=== PATIENT | female | born 1970 | race Two or more races ===

== ENCOUNTER 2019-11-03 13:20 | Inpatient (IN) | payer MEDICAID ==
[~2019-11-03] VITALS: Ht 167.6 cm; Wt 60.6 kg
[2019-11-03] MEDS ORDERED: DIPHENHYDRAMINE 50MG/ML VIAL IM STA (14:18)
[2019-11-03] MEDS ORDERED: LORAZEPAM 2MG/ML CPJ IM STA (14:18)
[2019-11-03] MEDS ORDERED: SODIUM CHLORIDE 0.9% 1,000 ML IV ONE ×2 (14:18→16:37)
[2019-11-03] MEDS ORDERED: HALOPERIDOL LACTATE 5MG/ML VIAL IM STA (14:18)
[2019-11-03 14:57] LABS: CHLORIDE 99 mEq/L (98-107); HEMATOCRIT. 32.8 % (36.0-48.0); MEAN CORPUSCULAR HEMOGLOBIN 36.6 pg (28.0-32.0); MEAN CORPUSCULAR VOLUME 109.2 fL (81.0-99.0); MEAN PLATELET VOLUME 8.6 fl (7.4-10.4); PLATELET 190 x1000/uL (130-400); RED BLOOD CELL COUNT 3.01 mill/uL (4.2-5.4); RED CELL DISTRIBUTION WIDTH 16.7 % (11.6-14.6)
[2019-11-03 15:01] LABS: HCG SCREEN NEGATIVE
[2019-11-03 15:03] LABS: ETHANOL BLOOD < 10 mg/dL
[2019-11-03 15:18] LABS: CREATINE KINASE 2680 IU/L (26-192)
[2019-11-03 15:53] LABS: PLATELET ESTIMATE NORMAL
[2019-11-03] MEDS ORDERED: SODIUM CHLORIDE 0.9% 1000ML BAG (SEPSIS BOLUS) IV ONE (16:15)
[2019-11-03] MEDS ORDERED: LEVOFLOXACIN 750MG PREMIX 150 ML IV ONE (16:15)
[2019-11-03] MEDS ORDERED: LORAZEPAM 2MG/ML CPJ IV ONE (16:15)
[2019-11-03 18:44] LABS: CLARITY URINE CLOUDY (CLEAR); COLOR URINE DARK YELLOW (YELLOW); KETONES URINE 1+ (NEGATIVE); LEUKOCYTE ESTERASE URINE NEGATIVE (NEGATIVE); NITRITE URINE NEGATIVE (NEGATIVE); OCCULT BLOOD URINE 3+ (NEGATIVE); PROTEIN URINE 2+ (NEGATIVE); SPECIFIC GRAVITY URINE 1.027 (1.005-1.030)
[2019-11-03] MEDS ORDERED: KCL 20MEQ/100ML PREMIX 100 ML IV ONE (19:00)
[2019-11-03 19:03] LABS: *AMPHETAMINES SCREEN URINE NEGATIVE (NEGATIVE); *BARBITURATES SCREEN URINE NEGATIVE (NEGATIVE)
[2019-11-03 19:05] LABS: METHADONE URINE SCREEN NEGATIVE (NEGATIVE); PHENCYCLIDINE URINE SCREEN NEGATIVE (NEGATIVE)
[2019-11-03] MEDS ORDERED: CLONIDINE 0.1MG TABLET PO PRN (19:15)
[2019-11-03] MEDS ORDERED: ONDANSETRON HCL 4MG/2ML INJ IV PRN (19:15)
[2019-11-03] MEDS ORDERED: HYDROCODONE/ACETAMINOPHEN 10/325MG TABLET PO PRN (19:15)
[2019-11-03] MEDS ORDERED: HYDRALAZINE 20MG/ML VIAL IV PRN (19:15)
[2019-11-03] MEDS ORDERED: DOCUSATE SODIUM 100MG CAPSULE PO PRN (19:15)
[2019-11-03] MEDS ORDERED: GUAIFENESIN 200MG/10ML SUGAR FREE UDC PO PRN (19:15)
[2019-11-03] MEDS ORDERED: IPRATROPIUM/ALBUTEROL 0.5-3(2.5)MG/3ML NEB HHN PRN (19:15)
[2019-11-03 19:21] LABS: *BENZODIAZEPINES SCREEN URINE PRESUMTIVE POSITIVE (NEGATIVE); *COCAINE SCREEN URINE PRESUMTIVE POSITIVE (NEGATIVE); CANNABINOID URINE SCREEN PRESUMTIVE POSITIVE (NEGATIVE); OPIATES URINE SCREEN PRESUMTIVE POSITIVE (NEGATIVE)
[2019-11-03 21:12] VITALS: BP 116/77
[2019-11-03] MEDS: SODIUM CHLORIDE 0.45% 1,000 ML IV SCH (22:07)
[2019-11-03] MEDS: SODIUM CHLORIDE 0.9% INJ 3ML FLUSH IVF SCH (22:08)
[2019-11-03 23:57] LABS: CREATINE KINASE MB FRACTION 11.8 ng/mL (0.5-3.6)
[2019-11-04] VITALS: BP 106/82
[2019-11-04 04:00] VITALS: BP 105/69
[2019-11-04] MEDS: SODIUM CHLORIDE 0.9% INJ 3ML FLUSH IVF SCH ×3 (05:33→23:25)
[2019-11-04 06:57] LABS: CHLORIDE 104 mEq/L (98-107)
[2019-11-04 07:11] LABS: CREATINE KINASE MB FRACTION 8.5 ng/mL (0.5-3.6)
[2019-11-04 07:14] LABS: BASOPHILS % 0.1 % (0.0-2.0); EOSINOPHILS % 0.1 % (0.0-5.0); HEMATOCRIT. 32.7 % (36.0-48.0); LYMPHOCYTES % 14.6 % (20.0-50.0); MEAN CORPUSCULAR HEMOGLOBIN 36.8 pg (28.0-32.0); MEAN PLATELET VOLUME 8.1 fl (7.4-10.4); MONOCYTES % 9.1 % (2.0-8.0); NEUTROPHILS % 76.1 % (40.0-76.0); PLATELET 179 x1000/uL (130-400); RED CELL DISTRIBUTION WIDTH 16.7 % (11.6-14.6)
[2019-11-04 07:20] LABS: CREATINE KINASE 2171 IU/L (26-192)
[2019-11-04 08:00] VITALS: BP 121/84
[2019-11-04] MEDS ORDERED: ENOXAPARIN 30MG/0.3ML SYR SUBCUT SCH (09:00)
[2019-11-04] MEDS: FOLIC ACID 1MG TABLET PO SCH (09:00)
[2019-11-04] MEDS ORDERED: ENOXAPARIN 40MG/0.4ML SYR SUBCUT SCH (09:00)
[2019-11-04] MEDS: THIAMINE HCL 100MG TABLET PO SCH (09:00)
[2019-11-04] MEDS: MULTIVITAMINS,THER W-MINERALS TABLET PO SCH (09:00)
[2019-11-04] MEDS ORDERED: POTASSIUM CHLORIDE 20MEQ TABLET SR PO SCH (09:15)
[2019-11-04] MEDS: SODIUM CHLORIDE 0.45% 1,000 ML IV SCH (09:19)
[2019-11-04 12:00] VITALS: BP 112/79
[2019-11-04] MEDS ORDERED: KCL 20MEQ/100ML PREMIX 100 ML IV SCH (12:00)
[2019-11-04] MEDS: DEXT 5%/0.45% NACL KCL 20MEQ/L 1,000 ML IV SCH (14:39)
[2019-11-04 16:00] VITALS: BP 122/90
[2019-11-04] MEDS: LORAZEPAM 2MG/ML CPJ IV PRN (18:52)
[2019-11-04 20:00] VITALS: BP 115/82
[2019-11-04] MEDS: ACETAMINOPHEN 325MG TABLET PO PRN (23:25)
[2019-11-05] VITALS: BP 113/74
[2019-11-05 04:00] VITALS: BP 113/74
[2019-11-05] MEDS: DEXT 5%/0.45% NACL KCL 20MEQ/L 1,000 ML IV SCH ×3 (06:48→17:07)
[2019-11-05] MEDS: SODIUM CHLORIDE 0.9% INJ 3ML FLUSH IVF SCH ×2 (06:49→13:26)
[2019-11-05 08:00] VITALS: BP 135/84
[2019-11-05] MEDS: ENOXAPARIN 40MG/0.4ML SYR SUBCUT SCH (09:41)
[2019-11-05] MEDS: MULTIVITAMINS,THER W-MINERALS TABLET PO SCH (09:41)
[2019-11-05] MEDS: FOLIC ACID 1MG TABLET PO SCH (09:41)
[2019-11-05] MEDS: THIAMINE HCL 100MG TABLET PO SCH (09:41)
[2019-11-05 10:35] LABS: MEAN CORPUSCULAR HEMOGLOBIN 36.9 pg (28.0-32.0); MEAN CORPUSCULAR VOLUME 107.4 fL (81.0-99.0); MEAN PLATELET VOLUME 7.7 fl (7.4-10.4); PLATELET 170 x1000/uL (130-400); RED BLOOD CELL COUNT 2.98 mill/uL (4.2-5.4)
[2019-11-05 10:44] LABS: CHLORIDE 103 mEq/L (98-107)
[2019-11-05 10:55] LABS: CREATINE KINASE 529 IU/L (26-192)
[2019-11-05 10:56] LABS: CREATINE KINASE MB FRACTION 1.3 ng/mL (0.5-3.6)
[2019-11-05 12:00] VITALS: BP 115/74
[2019-11-05 12:40] LABS: NUCLEATED RED BLOOD CELLS 1 /100 WBC
[2019-11-05 12:41] LABS: PLATELET ESTIMATE NORMAL
[2019-11-05] MEDS: LORAZEPAM 2MG/ML CPJ IV PRN ×3 (13:27→21:10)
[2019-11-05] MEDS ORDERED: POTASSIUM CHLORIDE 20MEQ TABLET SR PO SCH ×2 (13:30→16:00)
[2019-11-05 16:00] VITALS: BP 126/78
[2019-11-05] MEDS: ACETAMINOPHEN 325MG TABLET PO PRN (17:55)
[2019-11-05 20:00] VITALS: BP 94/60
[2019-11-05] MEDS: LEVOFLOXACIN 500MG PREMIX 100 ML IV SCH (21:10)
[2019-11-06] VITALS: BP 118/68
[2019-11-06 04:00] VITALS: BP 137/87
[2019-11-06] MEDS: DEXT 5%/0.45% NACL KCL 20MEQ/L 1,000 ML IV SCH ×2 (04:00→14:00)
[2019-11-06 08:00] VITALS: BP 140/87
[2019-11-06] MEDS: THIAMINE HCL 100MG TABLET PO SCH (10:02)
[2019-11-06] MEDS: FOLIC ACID 1MG TABLET PO SCH (10:02)
[2019-11-06] MEDS: ENOXAPARIN 40MG/0.4ML SYR SUBCUT SCH (10:03)
[2019-11-06] MEDS: MULTIVITAMINS,THER W-MINERALS TABLET PO SCH (10:03)
[2019-11-06] MEDS: LORAZEPAM 2MG/ML CPJ IV PRN ×2 (10:35→18:52)
[2019-11-06 12:00] VITALS: BP 128/89
[2019-11-06 16:00] VITALS: BP 125/92
[2019-11-06 16:37] LABS: CHLORIDE 103 mEq/L (98-107)
[2019-11-06 20:00] VITALS: BP 137/99
[2019-11-06] MEDS: LEVOFLOXACIN 500MG PREMIX 100 ML IV SCH (20:50)
[2019-11-06] MEDS: MORPHINE SULFATE 2 MG/ML CPJ (NOT FOR IM USE) IV PRN (21:40)
[2019-11-07] VITALS: BP 115/80
[2019-11-07] MEDS: DEXT 5%/0.45% NACL KCL 20MEQ/L 1,000 ML IV SCH ×3 (00:34→20:11)
[2019-11-07] MEDS: LORAZEPAM 2MG/ML CPJ IV PRN ×4 (01:57→17:13)
[2019-11-07 04:00] VITALS: BP 120/77
[2019-11-07 07:28] LABS: CHLORIDE 105 mEq/L (98-107)
[2019-11-07] MEDS: FOLIC ACID 1MG TABLET PO SCH (08:53)
[2019-11-07] MEDS: MULTIVITAMINS,THER W-MINERALS TABLET PO SCH (08:53)
[2019-11-07] MEDS: THIAMINE HCL 100MG TABLET PO SCH (08:53)
[2019-11-07] MEDS: DIPHENHYDRAMINE 50MG/ML VIAL IV PRN ×3 (08:55→20:12)
[2019-11-07] MEDS: MORPHINE SULFATE 2 MG/ML CPJ (NOT FOR IM USE) IV PRN ×2 (08:56→13:49)
[2019-11-07] MEDS: ENOXAPARIN 40MG/0.4ML SYR SUBCUT SCH (09:00)
[2019-11-07 12:00] VITALS: BP 137/96
[2019-11-07 16:00] VITALS: BP 124/89
[2019-11-07 20:00] VITALS: BP 127/87
[2019-11-07] MEDS: LEVOFLOXACIN 500MG PREMIX 100 ML IV SCH (20:11)
[2019-11-08] MEDS: LORAZEPAM 2MG/ML CPJ IV PRN ×2 (00:17→16:11)
[2019-11-08] MEDS: MORPHINE SULFATE 2 MG/ML CPJ (NOT FOR IM USE) IV PRN (00:43)
[2019-11-08] MEDS: DEXT 5%/0.45% NACL KCL 20MEQ/L 1,000 ML IV SCH ×2 (07:05→16:11)
[2019-11-08 08:00] VITALS: BP 110/72
[2019-11-08] MEDS: FOLIC ACID 1MG TABLET PO SCH (09:38)
[2019-11-08] MEDS: THIAMINE HCL 100MG TABLET PO SCH (09:38)
[2019-11-08] MEDS: MULTIVITAMINS,THER W-MINERALS TABLET PO SCH (09:39)
[2019-11-08] MEDS: ENOXAPARIN 40MG/0.4ML SYR SUBCUT SCH (09:39)
[2019-11-08 12:00] VITALS: BP 116/76
[2019-11-08 20:00] VITALS: BP 111/76
[2019-11-08] MEDS: LEVOFLOXACIN 500MG PREMIX 100 ML IV SCH (20:38)
[2019-11-08] MEDS: MAGNESIUM/ALUMINUM HYDROXIDE/SIMETHICONE 30ML UDC PO PRN (20:38)
[2019-11-08] MEDS: ACETAMINOPHEN 325MG TABLET PO PRN (21:07)
[2019-11-09] VITALS: BP 121/80
[2019-11-09] MEDS: DEXT 5%/0.45% NACL KCL 20MEQ/L 1,000 ML IV SCH ×2 (02:05→11:33)
[2019-11-09] MEDS: ACETAMINOPHEN 325MG TABLET PO PRN (03:36)
[2019-11-09 04:00] VITALS: BP 110/67
[2019-11-09] MEDS ORDERED: HYDROCODONE/ACETAMINOPHEN 10/325MG TABLET PO PRN (08:45)
[2019-11-09] MEDS ORDERED: MORPHINE SULFATE 2 MG/ML CPJ (NOT FOR IM USE) IV PRN (08:45)
[2019-11-09] MEDS ORDERED: LORAZEPAM 2MG/ML CPJ IV PRN (08:45)
[2019-11-09] MEDS: FOLIC ACID 1MG TABLET PO SCH (09:00)
[2019-11-09] MEDS: MULTIVITAMINS,THER W-MINERALS TABLET PO SCH (09:00)
[2019-11-09] MEDS: THIAMINE HCL 100MG TABLET PO SCH (09:00)
[2019-11-09] MEDS: ENOXAPARIN 40MG/0.4ML SYR SUBCUT SCH (09:00)
[2019-11-09] MEDS: MAGNESIUM/ALUMINUM HYDROXIDE/SIMETHICONE 30ML UDC PO PRN (12:56)
[2019-11-09 15:19] VITALS: BP 110/67
== END 2019-11-09 18:15 | DRG 720 ==
LOC: ER 13:30 → 5WST 17:15 → EDBD 17:15 → ENRESERV 19:47
PROVIDERS: ADMIT Internal Medicine; ATTEND Internal Medicine
DX: A41.9 Sepsis, unspecified organism (principal); N17.0 Acute kidney failure with tubular necrosis; E43 Unspecified severe protein-calorie malnutrition; T40.5X1A Poisoning by cocaine, accidental (unintentional), initial encounter; M62.82 Rhabdomyolysis; Z78.1 Physical restraint status; D64.9 Anemia, unspecified; E87.6 Hypokalemia; N39.0 Urinary tract infection, site not specified; R74.0 Nonspecific elevation of levels of transaminase and lactic acid dehydrogenase [LDH]; F11.10 Opioid abuse, uncomplicated; F12.10 Cannabis abuse, uncomplicated; E16.2 Hypoglycemia, unspecified; Z68.21 Body mass index [BMI] 21.0-21.9, adult; Z91.410 Personal history of adult physical and sexual abuse; Y92.89 Other specified places as the place of occurrence of the external cause
CPT/HCPCS: 36415; 71045; 80048; 80053; 80305; 80307; 80320; 80329; 81003; 82140; 82550; 82553; 82962; 83605; 84443; 84484; 84703; 85025; 93005; 96372; 99285; J1200; J1630; J1650; J1956; J2060; J2270; J3480; J7030; G0480

== ENCOUNTER 2020-03-18 15:53 | Emergency (ER) | payer MEDICAID ==
[~2020-03-18] VITALS: Ht 172.7 cm; Wt 51.0 kg
[2020-03-18] MEDS ORDERED: MORPHINE SULFATE 4 MG/ML CPJ (NOT FOR IM USE) IV STA (16:11)
[2020-03-18] MEDS ORDERED: FAMOTIDINE 20MG/2ML VIAL IV STA (16:11)
[2020-03-18] MEDS ORDERED: SODIUM CHLORIDE 0.9% 1,000 ML IV ONE (16:11)
[2020-03-18] MEDS ORDERED: ONDANSETRON HCL 4MG/2ML INJ IV STA (16:11)
[2020-03-18 16:51] LABS: BASOPHILS % 0.6 % (0.0-2.0); EOSINOPHILS % 0.1 % (0.0-5.0); HEMATOCRIT. 34.8 % (36.0-48.0); HEMOGLOBIN. 11.9 g/dL (12.0-16.0); LYMPHOCYTES % 11.7 % (20.0-50.0); MEAN CORPUSCULAR HEMOGLOBIN 35.9 pg (28.0-32.0); MEAN CORPUSCULAR VOLUME 105.1 fL (81.0-99.0); MEAN PLATELET VOLUME 6.8 fl (7.4-10.4); MONOCYTES % 8.9 % (2.0-8.0); NEUTROPHILS % 78.7 % (40.0-76.0); PLATELET 381 x1000/uL (130-400); RED BLOOD CELL COUNT 3.31 mill/uL (4.2-5.4); RED CELL DISTRIBUTION WIDTH 14.4 % (11.6-14.6)
[2020-03-18 16:53] LABS: CHLORIDE 105 mEq/L (98-107)
[2020-03-18 16:57] LABS: INR 1.2
[2020-03-18 17:19] LABS: CLARITY URINE CLOUDY (CLEAR); COLOR URINE DK YELLOW (YELLOW); KETONES URINE TRACE (NEGATIVE); LEUKOCYTE ESTERASE URINE TRACE (NEGATIVE); NITRITE URINE NEGATIVE (NEGATIVE); OCCULT BLOOD URINE NEGATIVE (NEGATIVE); PH URINE 7.5 (4.5-8.0); PROTEIN URINE 1+ (NEGATIVE); SPECIFIC GRAVITY URINE 1.024 (1.005-1.030)
[2020-03-18 18:32] VITALS: BP 145/89
== END 2020-03-18 18:32 | disposition home or self-care (01) ==
LOC: ER 15:53
DX: R10.9 Unspecified abdominal pain (principal); R11.2 Nausea with vomiting, unspecified
CPT/HCPCS: 36415; 80053; 81003; 83690; 85025; 85610; 96361; 96374; 96375; 99284; J2270; J2405; J3490; J7030

== ENCOUNTER 2021-05-12 10:56 | Inpatient (IN) | payer MEDICAID, OTHER ==
[~2021-05-12] VITALS: Ht 170.2 cm; Wt 66.2 kg
[2021-05-12] MEDS ORDERED: MORPHINE SULFATE 4 MG/ML CPJ (NOT FOR IM USE) IV ONE ×2 (11:45→15:00)
[2021-05-12] MEDS ORDERED: SODIUM CHLORIDE 0.9% 1,000 ML IV ONE (11:45)
[2021-05-12 12:06] LABS: HEMOGLOBIN. 10.5 g/dL (12.0-16.0); MEAN CORPUSCULAR HEMOGLOBIN 30.3 pg (28.0-32.0); MEAN CORPUSCULAR VOLUME 89.8 fL (81.0-99.0); MEAN PLATELET VOLUME 8.5 fl (7.4-10.4); PLATELET 406 x1000/uL (130-400); RED BLOOD CELL COUNT 3.45 mill/uL (4.2-5.4); RED CELL DISTRIBUTION WIDTH 19.9 % (11.6-14.6)
[2021-05-12 12:14] LABS: CHLORIDE 99 mEq/L (98-107)
[2021-05-12 12:35] LABS: PLATELET ESTIMATE NORMAL
[2021-05-12] MEDS ORDERED: VANCOMYCIN 1 G PREMIX 200 ML IV SCH (15:15)
[2021-05-12] MEDS ORDERED: LORAZEPAM 2MG/ML CPJ IV ONE (18:30)
[2021-05-12] MEDS ORDERED: ACETAMINOPHEN 325MG TABLET PO ONE (21:45)
[2021-05-12] MEDS ORDERED: ACETAMINOPHEN 325MG TABLET PO PRN ×3 (21:45→23:15)
[2021-05-12] MEDS ORDERED: SODIUM CHLORIDE 0.9% 500 ML IV ONE (21:45)
[2021-05-12 22:00] VITALS: BP 146/83
[2021-05-12] MEDS ORDERED: SODIUM CHLORIDE 0.9% 500 ML IV NR (22:00)
[2021-05-12] MEDS ORDERED: PIPERACILLIN/TAZ 3.375G PREMIX 50 ML IV NR (23:30)
[2021-05-13] VITALS: BP 144/88
[2021-05-13] MEDS ORDERED: NALOXONE HCL 0.4MG/ML VIAL IV PRN (00:45)
[2021-05-13] MEDS: MORPHINE SULFATE 2 MG/ML CPJ (NOT FOR IM USE) IV PRN ×4 (00:45→22:35)
[2021-05-13] MEDS: VANCOMYCIN 750 MG PREMIX 150 ML IV SCH ×2 (00:45→09:06)
[2021-05-13 04:00] VITALS: BP 131/87
[2021-05-13] MEDS ORDERED: PIPERACILLIN/TAZOBACTAM 3.375GM/50ML PREMIX IV SCH (06:00)
[2021-05-13] MEDS: PIPERACILLIN/TAZOBACTAM 3.375G in DEXT 5% WATER 50ML IV SCH ×3 (06:43→21:01)
[2021-05-13 06:45] LABS: HEMATOCRIT. 27.7 % (36.0-48.0); HEMOGLOBIN. 9.3 g/dL (12.0-16.0); MEAN CORPUSCULAR VOLUME 89.4 fL (81.0-99.0); MEAN PLATELET VOLUME 8.1 fl (7.4-10.4); PLATELET 468 x1000/uL (130-400); RED CELL DISTRIBUTION WIDTH 19.4 % (11.6-14.6)
[2021-05-13 06:49] LABS: CHLORIDE 105 mEq/L (98-107)
[2021-05-13 08:00] VITALS: BP 130/83
[2021-05-13] MEDS ORDERED: PNEUMOCOCCAL 23-VAL P-SAC VAC 0.5 ML IM ONE (08:00)
[2021-05-13] MEDS: FAMOTIDINE 20MG TABLET PO SCH ×2 (09:06→17:36)
[2021-05-13] MEDS: ENOXAPARIN 40MG/0.4ML SYR SUBCUT SCH (09:07)
[2021-05-13 12:00] VITALS: BP 119/80
[2021-05-13] MEDS ORDERED: METOPROLOL TARTRATE 25MG TABLET PO SCH (13:30)
[2021-05-13] MEDS: GABAPENTIN 300MG CAPSULE PO SCH ×2 (14:36→21:00)
[2021-05-13] MEDS: CHLORDIAZEPOXIDE 25MG CAPSULE PO SCH ×2 (14:36→21:00)
[2021-05-13] MEDS: METOPROLOL TARTRATE 25MG TABLET PO SCH ×2 (14:37→21:00)
[2021-05-13] MEDS ORDERED: FOLIC ACID 1 MG, THIAMINE HCL 100 MG, MVI, ADULT NO.1 10 ML in DEXTROSE 5% WATER 1,000 ML IV SCH (15:00)
[2021-05-13 15:35] LABS: PLATELET ESTIMATE INCREASED
[2021-05-13 16:00] VITALS: BP 143/88
[2021-05-13 19:52] LABS: *AMPHETAMINES SCREEN URINE NEGATIVE (NEGATIVE); *BARBITURATES SCREEN URINE NEGATIVE (NEGATIVE); *BENZODIAZEPINES SCREEN URINE NEGATIVE (NEGATIVE); *COCAINE SCREEN URINE NEGATIVE (NEGATIVE); METHADONE URINE SCREEN NEGATIVE (NEGATIVE); OPIATES URINE SCREEN PRESUMTIVE POSITIVE (NEGATIVE)
[2021-05-13 19:53] LABS: CANNABINOID URINE SCREEN PRESUMTIVE POSITIVE (NEGATIVE); PHENCYCLIDINE URINE SCREEN NEGATIVE (NEGATIVE)
[2021-05-13 20:00] VITALS: BP 130/89
[2021-05-13] MEDS: VANCOMYCIN 1 G PREMIX 200 ML IV SCH (20:35)
[2021-05-14] VITALS: BP 140/92
[2021-05-14] MEDS: PANTOPRAZOLE 40MG DR TABLET PO SCH ×3 (01:51→22:38)
[2021-05-14] MEDS: HYDROXYCHLOROQUINE SULFATE 200MG TABLET PO SCH ×2 (01:51→12:50)
[2021-05-14] MEDS: METHYLPREDNISOLONE SOD SUCC 40 MG/ML VIAL IV SCH ×3 (01:51→22:35)
[2021-05-14] MEDS: CELECOXIB 200MG CAPSULE PO SCH ×3 (01:52→17:40)
[2021-05-14 04:00] VITALS: BP 91/51
[2021-05-14] MEDS: CHLORDIAZEPOXIDE 25MG CAPSULE PO SCH ×3 (06:00→22:37)
[2021-05-14] MEDS: GABAPENTIN 300MG CAPSULE PO SCH ×3 (06:00→22:38)
[2021-05-14] MEDS: PIPERACILLIN/TAZOBACTAM 3.375G in DEXT 5% WATER 50ML IV SCH ×3 (06:00→22:37)
[2021-05-14] MEDS: MORPHINE SULFATE 2 MG/ML CPJ (NOT FOR IM USE) IV PRN ×2 (06:39→12:54)
[2021-05-14 07:45] LABS: CHLORIDE 98 mEq/L (98-107)
[2021-05-14 07:53] LABS: CREATINE KINASE 24 IU/L (26-192)
[2021-05-14 08:00] VITALS: BP 125/85
[2021-05-14 12:00] VITALS: BP 132/86
[2021-05-14] MEDS: ENOXAPARIN 40MG/0.4ML SYR SUBCUT SCH (12:50)
[2021-05-14] MEDS: VANCOMYCIN 1 G PREMIX 200 ML IV SCH ×2 (12:51→22:35)
[2021-05-14] MEDS: METOPROLOL TARTRATE 25MG TABLET PO SCH ×2 (12:52→22:36)
[2021-05-14] MEDS: LEFLUNOMIDE 20MG TABLET PO SCH (13:23)
[2021-05-14 16:00] VITALS: BP 142/88
[2021-05-14 16:26] LABS: BASOPHILS % 0.6 % (0.0-2.0); HEMATOCRIT. 31.9 % (36.0-48.0); HEMOGLOBIN. 10.5 g/dL (12.0-16.0); LYMPHOCYTES % 12.8 % (20.0-50.0); MEAN CORPUSCULAR HEMOGLOBIN 30.7 pg (28.0-32.0); MEAN CORPUSCULAR VOLUME 93.3 fL (81.0-99.0); MEAN PLATELET VOLUME 9.2 fl (7.4-10.4); MONOCYTES % 9.1 % (2.0-8.0); NEUTROPHILS % 77.5 % (40.0-76.0); PLATELET 601 x1000/uL (130-400); RED BLOOD CELL COUNT 3.42 mill/uL (4.2-5.4); RED CELL DISTRIBUTION WIDTH 18.3 % (11.6-14.6)
[2021-05-14] MEDS: HYDROCODONE/ACETAMINOPHEN 10/325MG TABLET PO PRN (17:55)
[2021-05-14 20:00] VITALS: BP 114/84
[2021-05-14] MEDS: LORAZEPAM 2MG/ML CPJ IV PRN (22:39)
[2021-05-15] VITALS: BP 111/76
[2021-05-15 05:36] LABS: BASOPHILS % 0.1 % (0.0-2.0); EOSINOPHILS % 0.1 % (0.0-5.0); HEMATOCRIT. 29.1 % (36.0-48.0); LYMPHOCYTES % 10.2 % (20.0-50.0); MEAN CORPUSCULAR HEMOGLOBIN 31.9 pg (28.0-32.0); MEAN CORPUSCULAR VOLUME 92.7 fL (81.0-99.0); MEAN PLATELET VOLUME 7.9 fl (7.4-10.4); MONOCYTES % 3.2 % (2.0-8.0); NEUTROPHILS % 86.4 % (40.0-76.0); PLATELET 742 x1000/uL (130-400); RED BLOOD CELL COUNT 3.14 mill/uL (4.2-5.4); RED CELL DISTRIBUTION WIDTH 18.3 % (11.6-14.6)
[2021-05-15 05:58] LABS: CLARITY URINE CLEAR (CLEAR); COLOR URINE YELLOW (YELLOW); KETONES URINE NEGATIVE (NEGATIVE); LEUKOCYTE ESTERASE URINE NEGATIVE (NEGATIVE); NITRITE URINE NEGATIVE (NEGATIVE); OCCULT BLOOD URINE NEGATIVE (NEGATIVE); PROTEIN URINE TRACE (NEGATIVE); SPECIFIC GRAVITY URINE 1.033 (1.005-1.030); UROBILINOGEN URINE 0.2 E.U./dL (0.2-1.0)
[2021-05-15 06:13] LABS: CHLORIDE 101 mEq/L (98-107)
[2021-05-15] MEDS: CHLORDIAZEPOXIDE 25MG CAPSULE PO SCH ×3 (06:13→21:16)
[2021-05-15] MEDS: GABAPENTIN 300MG CAPSULE PO SCH ×3 (06:13→21:16)
[2021-05-15] MEDS: PANTOPRAZOLE 40MG DR TABLET PO SCH ×2 (06:13→21:16)
[2021-05-15] MEDS: PIPERACILLIN/TAZOBACTAM 3.375G in DEXT 5% WATER 50ML IV SCH ×3 (06:15→21:16)
[2021-05-15] MEDS: HYDROCODONE/ACETAMINOPHEN 10/325MG TABLET PO PRN (06:51)
[2021-05-15 08:00] VITALS: BP 125/62
[2021-05-15] MEDS: VANCOMYCIN 1 G PREMIX 200 ML IV SCH ×2 (09:00→22:17)
[2021-05-15 09:07] LABS: G6PD RBC 3.53 x10E6/uL (3.77-5.28)
[2021-05-15] MEDS: METHYLPREDNISOLONE SOD SUCC 40 MG/ML VIAL IV SCH ×2 (10:14→21:15)
[2021-05-15] MEDS: CELECOXIB 200MG CAPSULE PO SCH (10:14)
[2021-05-15] MEDS: LEFLUNOMIDE 20MG TABLET PO SCH (10:14)
[2021-05-15] MEDS: ENOXAPARIN 40MG/0.4ML SYR SUBCUT SCH (10:16)
[2021-05-15] MEDS: HYDROXYCHLOROQUINE SULFATE 200MG TABLET PO SCH (10:17)
[2021-05-15] MEDS: METOPROLOL TARTRATE 25MG TABLET PO SCH ×2 (10:26→21:16)
[2021-05-15] MEDS ORDERED: DEXTROSE 50% WATER 50ML SYRINGE IV PRN (11:30)
[2021-05-15 12:00] VITALS: BP 135/72
[2021-05-15] MEDS ORDERED: OXYCODONE HCL/ACETAMINOPHEN 5/325MG TABLET PO PRN (12:00)
[2021-05-15] MEDS: BLOOD SUGAR DIAGNOSTIC STRIP TEST SCH ×3 (12:10→21:16)
[2021-05-15] MEDS: INSULIN LISPRO 100 UNITS/ML SUBCUT SCH ×2 (13:46→21:55)
[2021-05-15 16:00] VITALS: BP 140/80
[2021-05-15] MEDS: OXYCODONE HCL/ACETAMINOPHEN 5/325MG TABLET PO PRN ×2 (16:29→21:17)
[2021-05-15 20:00] VITALS: BP 135/99
[2021-05-15] MEDS: LORAZEPAM 2MG/ML CPJ IV PRN (21:17)
[2021-05-16] VITALS: BP 129/86
[2021-05-16 04:00] VITALS: BP_SYST 127; BP_DIAS 93; BP_DIAS 98
[2021-05-16] MEDS: PIPERACILLIN/TAZOBACTAM 3.375G in DEXT 5% WATER 50ML IV SCH ×2 (05:37→14:00)
[2021-05-16] MEDS: GABAPENTIN 300MG CAPSULE PO SCH ×3 (05:37→21:40)
[2021-05-16] MEDS: PANTOPRAZOLE 40MG DR TABLET PO SCH ×2 (05:37→21:39)
[2021-05-16] MEDS: CELECOXIB 200MG CAPSULE PO SCH ×2 (05:37→17:20)
[2021-05-16] MEDS: CHLORDIAZEPOXIDE 25MG CAPSULE PO SCH ×3 (05:37→21:39)
[2021-05-16] MEDS: LORAZEPAM 2MG/ML CPJ IV PRN ×2 (05:48→12:29)
[2021-05-16] MEDS: BLOOD SUGAR DIAGNOSTIC STRIP TEST SCH ×4 (06:01→21:00)
[2021-05-16] MEDS: INSULIN LISPRO 100 UNITS/ML SUBCUT SCH ×4 (06:04→21:00)
[2021-05-16 08:00] VITALS: BP 113/79
[2021-05-16] MEDS: HYDROXYCHLOROQUINE SULFATE 200MG TABLET PO SCH (09:08)
[2021-05-16] MEDS: ENOXAPARIN 40MG/0.4ML SYR SUBCUT SCH (09:08)
[2021-05-16] MEDS: METOPROLOL TARTRATE 25MG TABLET PO SCH ×2 (09:09→21:00)
[2021-05-16] MEDS: OXYCODONE HCL/ACETAMINOPHEN 5/325MG TABLET PO PRN (09:09)
[2021-05-16] MEDS: METHYLPREDNISOLONE SOD SUCC 40 MG/ML VIAL IV SCH ×2 (09:10→21:40)
[2021-05-16] MEDS: VANCOMYCIN 1 G PREMIX 200 ML IV SCH (10:29)
[2021-05-16] MEDS: LEFLUNOMIDE 20MG TABLET PO SCH (11:07)
[2021-05-16 12:00] VITALS: BP 125/73
[2021-05-16 15:06] LABS: ANTI-MYELOPEROXIDASE AB < 9.0 U/mL (0.0-9.0); ANTI-PROTEINASE 3 ABS 41.5 U/mL (0.0-3.5)
[2021-05-16 16:00] VITALS: BP 120/79
[2021-05-16 17:09] LABS: ANA IFA Positive (.); G6PD QUANTITATIVE 457 (127-427)
[2021-05-16] MEDS: SERTRALINE HCL 25MG TABLET PO SCH (17:20)
[2021-05-16 19:06] LABS: ALDOLASE 7.6 U/L (3.3-10.3)
[2021-05-16 20:00] VITALS: BP 103/73
[2021-05-16] MEDS: QUETIAPINE FUMARATE 50MG TABLET PO SCH (21:39)
[2021-05-16] MEDS: INSULIN GLARGINE UD 100 UNITS/ML SYR SUBCUT SCH (21:41)
[2021-05-17 04:00] VITALS: BP 101/63
[2021-05-17] MEDS: CHLORDIAZEPOXIDE 25MG CAPSULE PO SCH ×3 (05:38→21:36)
[2021-05-17] MEDS: GABAPENTIN 300MG CAPSULE PO SCH ×3 (05:38→21:36)
[2021-05-17] MEDS: PANTOPRAZOLE 40MG DR TABLET PO SCH ×2 (05:39→21:36)
[2021-05-17 05:47] VITALS: BP 107/63
[2021-05-17] MEDS: OXYCODONE HCL/ACETAMINOPHEN 5/325MG TABLET PO PRN ×2 (05:48→11:17)
[2021-05-17] MEDS: BLOOD SUGAR DIAGNOSTIC STRIP TEST SCH ×4 (06:02→21:37)
[2021-05-17] MEDS: INSULIN LISPRO 100 UNITS/ML SUBCUT SCH ×4 (06:02→21:00)
[2021-05-17 08:11] VITALS: BP 99/65
[2021-05-17] MEDS: METOPROLOL TARTRATE 25MG TABLET PO SCH ×2 (08:12→21:35)
[2021-05-17] MEDS: HYDROXYCHLOROQUINE SULFATE 200MG TABLET PO SCH (08:24)
[2021-05-17] MEDS: METHYLPREDNISOLONE SOD SUCC 40 MG/ML VIAL IV SCH ×2 (08:24→21:35)
[2021-05-17] MEDS: QUETIAPINE FUMARATE 50MG TABLET PO SCH ×2 (08:24→21:39)
[2021-05-17] MEDS: SERTRALINE HCL 25MG TABLET PO SCH (08:24)
[2021-05-17] MEDS: LEFLUNOMIDE 20MG TABLET PO SCH (08:24)
[2021-05-17] MEDS: ENOXAPARIN 40MG/0.4ML SYR SUBCUT SCH (08:24)
[2021-05-17] MEDS: CELECOXIB 200MG CAPSULE PO SCH ×2 (08:24→16:44)
[2021-05-17 08:45] LABS: CHLORIDE 103 mEq/L (98-107)
[2021-05-17 09:11] LABS: CYC CITRULLINATED PEP IgG/IgA 7 units (0-19)
[2021-05-17] MEDS: INSULIN GLARGINE UD 100 UNITS/ML SYR SUBCUT SCH ×2 (10:59→21:40)
[2021-05-17 12:00] VITALS: BP 100/66
[2021-05-17 16:00] VITALS: BP 110/76
[2021-05-17] MEDS: LORAZEPAM 2MG/ML CPJ IV PRN (17:07)
[2021-05-17 20:00] VITALS: BP 114/81
[2021-05-18] VITALS: BP 100/69
[2021-05-18 04:00] VITALS: BP 91/56
[2021-05-18] MEDS: PANTOPRAZOLE 40MG DR TABLET PO SCH ×2 (05:13→22:22)
[2021-05-18] MEDS: CHLORDIAZEPOXIDE 25MG CAPSULE PO SCH ×2 (05:13→14:00)
[2021-05-18] MEDS: GABAPENTIN 300MG CAPSULE PO SCH ×3 (05:13→22:23)
[2021-05-18] MEDS: BLOOD SUGAR DIAGNOSTIC STRIP TEST SCH ×4 (05:59→21:00)
[2021-05-18] MEDS: INSULIN LISPRO 100 UNITS/ML SUBCUT SCH ×4 (06:55→22:25)
[2021-05-18 08:00] VITALS: BP 105/64
[2021-05-18] MEDS: METOPROLOL TARTRATE 25MG TABLET PO SCH ×2 (09:00→22:25)
[2021-05-18] MEDS: QUETIAPINE FUMARATE 50MG TABLET PO SCH ×2 (09:47→22:22)
[2021-05-18] MEDS: CELECOXIB 200MG CAPSULE PO SCH ×2 (09:49→17:37)
[2021-05-18] MEDS: OXYCODONE HCL/ACETAMINOPHEN 5/325MG TABLET PO PRN ×2 (09:49→22:24)
[2021-05-18] MEDS: METHYLPREDNISOLONE SOD SUCC 40 MG/ML VIAL IV SCH ×2 (09:50→22:23)
[2021-05-18] MEDS: INSULIN GLARGINE UD 100 UNITS/ML SYR SUBCUT SCH ×2 (09:52→22:35)
[2021-05-18] MEDS: LEFLUNOMIDE 20MG TABLET PO SCH (09:54)
[2021-05-18] MEDS: HYDROXYCHLOROQUINE SULFATE 200MG TABLET PO SCH (09:54)
[2021-05-18] MEDS: ENOXAPARIN 40MG/0.4ML SYR SUBCUT SCH (09:55)
[2021-05-18] MEDS: SERTRALINE HCL 25MG TABLET PO SCH (09:57)
[2021-05-18 12:00] VITALS: BP 112/68
[2021-05-18 13:07] LABS: ATYPICAL P-ANCA <1:20 titer (Neg:<1:20); CYTOPLASMIC C-ANCA <1:20 titer (Neg:<1:20); PERINUCLEAR P-ANCA <1:20 titer (Neg:<1:20)
[2021-05-18 15:37] VITALS: BP 115/72
[2021-05-18] MEDS ORDERED: ZOLPIDEM TARTRATE 5MG TABLET PO PRN (19:45)
[2021-05-18 20:00] VITALS: BP 118/79
[2021-05-18] MEDS: TRAZODONE HCL 50MG TABLET PO SCH (22:30)
[2021-05-19 00:08] VITALS: BP 109/59
[2021-05-19 04:00] VITALS: BP 115/80
[2021-05-19] MEDS: BLOOD SUGAR DIAGNOSTIC STRIP TEST SCH ×4 (05:45→21:00)
[2021-05-19] MEDS: GABAPENTIN 300MG CAPSULE PO SCH ×3 (05:55→22:07)
[2021-05-19] MEDS: INSULIN LISPRO 100 UNITS/ML SUBCUT SCH ×4 (05:58→21:00)
[2021-05-19] MEDS: METHYLPREDNISOLONE SOD SUCC 40 MG/ML VIAL IV SCH ×2 (09:00→22:00)
[2021-05-19] MEDS: METOPROLOL TARTRATE 25MG TABLET PO SCH ×2 (09:00→22:07)
[2021-05-19] MEDS: HYDROXYCHLOROQUINE SULFATE 200MG TABLET PO SCH (09:00)
[2021-05-19] MEDS: FAMOTIDINE 20MG TABLET PO SCH ×2 (09:00→22:07)
[2021-05-19] MEDS: LEFLUNOMIDE 20MG TABLET PO SCH (09:00)
[2021-05-19] MEDS: ENOXAPARIN 40MG/0.4ML SYR SUBCUT SCH (09:00)
[2021-05-19] MEDS: QUETIAPINE FUMARATE 50MG TABLET PO SCH ×2 (09:24→22:06)
[2021-05-19] MEDS: CELECOXIB 200MG CAPSULE PO SCH ×2 (09:24→17:21)
[2021-05-19] MEDS: INSULIN GLARGINE UD 100 UNITS/ML SYR SUBCUT SCH ×2 (10:29→22:00)
[2021-05-19 12:00] VITALS: BP 123/66
[2021-05-19 16:00] VITALS: BP 117/58
[2021-05-19 20:00] VITALS: BP 129/89
[2021-05-19] MEDS: TRAZODONE HCL 50MG TABLET PO SCH (22:07)
[2021-05-20] VITALS: BP 118/60
[2021-05-20] MEDS: GABAPENTIN 300MG CAPSULE PO SCH (06:00)
[2021-05-20] MEDS: BLOOD SUGAR DIAGNOSTIC STRIP TEST SCH ×2 (07:10→12:10)
[2021-05-20] MEDS: INSULIN LISPRO 100 UNITS/ML SUBCUT SCH ×2 (07:40→12:36)
[2021-05-20] MEDS: QUETIAPINE FUMARATE 50MG TABLET PO SCH (09:17)
[2021-05-20] MEDS: METOPROLOL TARTRATE 25MG TABLET PO SCH (09:17)
[2021-05-20] MEDS: HYDROXYCHLOROQUINE SULFATE 200MG TABLET PO SCH (09:17)
[2021-05-20] MEDS: FAMOTIDINE 20MG TABLET PO SCH (09:17)
[2021-05-20] MEDS: METHYLPREDNISOLONE SOD SUCC 40 MG/ML VIAL IV SCH (09:18)
[2021-05-20] MEDS: ENOXAPARIN 40MG/0.4ML SYR SUBCUT SCH (09:18)
[2021-05-20] MEDS: CELECOXIB 200MG CAPSULE PO SCH (09:18)
[2021-05-20] MEDS: INSULIN GLARGINE UD 100 UNITS/ML SYR SUBCUT SCH (09:20)
[2021-05-20] MEDS: LEFLUNOMIDE 20MG TABLET PO SCH (09:22)
[2021-05-20] MEDS: OXYCODONE HCL/ACETAMINOPHEN 5/325MG TABLET PO PRN (11:06)
[2021-05-20 12:00] VITALS: BP 132/74
[2021-05-20 12:56] VITALS: BP 128/74
== END 2021-05-20 14:25 | DRG 720 ==
LOC: ER 11:20 → 8WST 18:57 → EDBEDREQ 19:31 → EDBEDREQSVC 19:31 → EDBEDREQTM 19:31 → ENRESERV 19:54 → 8WST 05-15 23:24
PROVIDERS: ADMIT Internal Medicine; ATTEND Internal Medicine
PROC: 3E0233Z Introduction of Anti-inflammatory into Muscle, Percutaneous Approach (ICD-10-PCS; principal; 2021-05-15)
DX: A41.9 Sepsis, unspecified organism (principal); E43 Unspecified severe protein-calorie malnutrition; F25.9 Schizoaffective disorder, unspecified; D64.9 Anemia, unspecified; D75.839 Thrombocytosis, unspecified; S93.124A Dislocation of metatarsophalangeal joint of right lesser toe(s), initial encounter; D75.A Glucose-6-phosphate dehydrogenase (G6PD) deficiency without anemia; F10.139 Alcohol abuse with withdrawal, unspecified; M06.9 Rheumatoid arthritis, unspecified; F31.9 Bipolar disorder, unspecified; M19.041 Primary osteoarthritis, right hand; M75.51 Bursitis of right shoulder; M19.90 Unspecified osteoarthritis, unspecified site; Y90.9 Presence of alcohol in blood, level not specified; F12.90 Cannabis use, unspecified, uncomplicated; M65.841 Other synovitis and tenosynovitis, right hand; I77.6 Arteritis, unspecified; R13.10 Dysphagia, unspecified; Z20.822 Contact with and (suspected) exposure to COVID-19; X58.XXXA Exposure to other specified factors, initial encounter; Z82.61 Family history of arthritis; Z88.6 Allergy status to analgesic agent; Z71.41 Alcohol abuse counseling and surveillance of alcoholic; Z68.22 Body mass index [BMI] 22.0-22.9, adult; Y93.89 Activity, other specified; Y92.89 Other specified places as the place of occurrence of the external cause; Y99.8 Other external cause status
CPT/HCPCS: 36415; 72040; 73080; 73120; 73221; 73502; 73562; 73610; 73620; 73721; 80048; 80053; 80202; 80305; 80320; 81003; 82085; 82550; 82955; 82962; 83036; 83520; 83880; 84145; 85025; 85041; 85651; 86140; 86200; 86256; 86431; 87426; 97110; 97116; 97162; 97166; 97530; 97535; 99285; C1893; J1650; J1815; J2060; J2270; J2543; J2920; J3370; J3411; J3490; J7030; J7040; J7060; J7070; G0480